=== PATIENT | male | born 1965 | race Caucasian/White ===

== ENCOUNTER 2024-07-30 00:42 | Emergency (ER) | payer OTHER, SELFPAY ==
[2024-07-30] VITALS (42 sets, daily range): BP systolic 118–205; BP diastolic 70–132; PULSE 89–101; RESP 16–35; TEMP 36.8; O2SAT 86–100; BMI 20.7
--- NOTE | 2024-07-30 00:56 | EKG_ITS ---
[place] [id number] [place] [id number] Test Date: 2024-07-30 Pat Name: Freya Shook Department: [facility] Room: Gender: Male [employer] Supervisor: MACKENZIE : 1965 Requested By: Order Number: [id number] Reading MD: Maykel Haas Measurements Intervals [place] Rate: 98 P: 67 IN: 132 QRS: 42 QRSD: 98 T: 109 QT: 408 QTc: 520 Interpretive Statements Normal sinus rhythm Incomplete right bundle branch block Minimal voltage criteria for LVH, may be normal variant ( Sokolow-Alberts ) Cannot rule out Inferior infarct , age undetermined Prolonged QT Electronically Signed On 08-08-2024 18:49:09 PDT by Maykel Haas
--- NOTE | 2024-07-30 01:15 | DI.RAD.S_ITS ---
PROCEDURE: XR CHEST 1V INDICATIONS: Shortness of breath TECHNIQUE: One view of the chest was acquired. COMPARISON: None. FINDINGS: Surgical changes and devices: None. Lungs and pleura: Patchy mixed interstitial and alveolar opacities in the right lung and to lesser extent left lung. Blunting of the right costophrenic sulcus. No pneumothorax. Mediastinum: Mediastinal contours appear normal. Heart size is normal. Bones and chest wall: No suspicious bony lesions. Overlying soft tissues appear unremarkable. IMPRESSION: Mixed interstitial and alveolar opacities suggesting atypical pneumonia, less likely asymmetric pulmonary edema. Correlate lab values. Dictated by: Cintia Cortes M.D. on 07/30/2024 at 1:39 Approved by: Cintia Cortes M.D. on 07/30/2024 at 1:41
[2024-07-30 01:32] LABS: INR 1.1 (0.9-1.3); Prothrombin Time 12.6 SECONDS (9.4-12.5)
[2024-07-30 01:35] LABS: Lactate (Lactic Acid) 1.4 mmol/L (0.7-2.1)
[2024-07-30 01:36] LABS: Alanine Aminotransferase 181 IU/L (<50); Albumin Globulin Ratio 1.3 (1.0-2.8); Alkaline Phosphatase 118 U/L (38-126); Aspartate Aminotransferase 307 IU/L (17-59); BUN Creatinine Ratio 10.6 (6-22); Blood Urea Nitrogen 57 mg/dL (9-20); Carbon Dioxide 22 mmol/L (22-32); Chloride 99 mmol/L (98-107); Estimated Glomerular Filt Rate 12 mL/min (>60); Globulin 3.1 g/dL (1.7-4.1); Glucose 126 mg/dL (70-100); Sodium 135 mmol/L (137-145); Total Protein 7.1 g/dL (6.3-8.2)
[2024-07-30 01:39] LABS: Add Manual Diff / Slide Review NO; Basophils Absolute Auto 100 /uL (0-100); Basophils Percent Auto 0.9 % (0-2); Eosinophils Absolute Auto 200 /uL (0-450); Eosinophils Percent Auto 1.8 % (2-4); Hematocrit 21.5 % (41-53); Hemoglobin 7.5 g/dL (13.5-17.5); Lymphocytes Absolute Auto 1200 /uL (1100-4500); Lymphocytes Percent Auto 12.4 % (25-40); Mean Corpuscular HGB Conc 34.9 % (30-36); Mean Corpuscular Volume 91.5 fL (80-100); Monocytes Absolute Auto 800 /uL (0-900); Monocytes Percent Auto 8.9 % (3-14); Neutrophils Absolute Auto 7200 /uL (1500-7000); Platelet Count 310 X10^3/uL (150-400); Red Blood Cell Count 2.34 X10^6/uL (4.5-5.9); Red Cell Distribution Width 17.1 % (11.6-14.8); White Blood Cell Count 9.5 X10^3/uL (4.5-11.0)
[2024-07-30 02:01] LABS: NT-proBNP (BNP-Adult 18+) 47400 pg/mL (<125)
[2024-07-30 02:02] LABS: HEMOLYSIS 113 (0-50)
[2024-07-30 02:04] LABS: Potassium 4.1 mmol/L (3.4-5.1); Troponin I 0.182 ng/mL (0.01-0.034)
--- NOTE | 2024-07-30 02:08 | DI.CT.S_ITS ---
PROCEDURE: CT KIDNEY URETER BLADDER (KUB) INDICATIONS: TEENA TECHNIQUE: After the administration of oral contrast, 5 mm thick sections acquired from the diaphragms to the symphysis. 5 mm coronal and sagittal reformats were performed. For radiation dose reduction, the following was used: automated exposure control, adjustment of mA and/or kV according to patient size. COMPARISON: None. FINDINGS: Image quality: Diagnostic. Lower Chest: Moderate right pleural effusion. ABDOMEN: Liver: No contour-deforming mass. Gallbladder: Gallbladder wall thickening or pericholecystic fluid. No calcified stones present. Biliary ducts: No biliary dilation. Pancreas: No ductal dilation. Spleen: Splenectomy Adrenal Glands: No adrenal nodules. Kidneys and Ureters: No hydronephrosis. Nonobstructing renal bilateral calculi. Left renal atrophy. 6 mm distal left ureteral calculus Stomach and Bowel: Normal colonic caliber, without significant wall thickening. Multiple diverticula arise from the sigmoid colon without evidence of diverticulitis. Peritoneum: No abnormal intraperitoneal fluid. No free air. Ventral Wall: No significant hernia. Abdominal Nodes: No retroperitoneal or mesenteric adenopathy by size criteria. Vessels: Aorta and inferior vena cava are normal in size. PELVIS: Pelvic Organs: Unremarkable. Bladder: Unremarkable. Pelvic Nodes: No enlarged lymph nodes. Miscellaneous: Small bilateral inguinal hernias contain fat without bowel involvement.. Small amount of free fluid in the pelvis Bones: No aggressive osseous abnormality. IMPRESSION: Gallbladder wall thickening or pericholecystic fluid. Correlate with ultrasound to assess for acute cholecystitis. Bilateral nonobstructive renal calculi. Atrophic left kidney associated with distal left ureteral calculus, 6 mm Free fluid in the pelvis. No abscess. Note: This final report is concordant with the preliminary after-hours interpretation provided by [employer] Approved by: Juan Manuel Miner M.D. on 07/30/2024 at 8:24
[2024-07-30] MEDS: CALCIUM GLUCONATE 4.65 MEQ in SODIUM CHLORIDE 0.9% 50 ML 180 MEQ IV (02:45)
--- NOTE | 2024-07-30 03:03 | PC.NURSE ---
Pt states that he is feeling much better since arriving to ER. Denies pain. The numbness and tingling he had in his hands and feet have improved. He was told previously that he has neuropathy.
--- NOTE | 2024-07-30 03:25 | ED.GENADULT ---
HPI - General Adult <Marie Arellano DO - Last Filed: 07/31/24 06:22> General Chief complaint: Weakness Stated complaint: Hypertension, can barely walk Time Seen by Provider: 07/30/24 02:08 Source: patient, RN notes reviewed and old records reviewed Mode of arrival: Ambulatory Limitations: no limitations History of Present Illness HPI narrative: 59-year-old male states he was just started on blood pressure medication a week ago presents with complaint of increasing shortness of breath, dyspnea with exertion and fatigue starting in March but worsening over the past couple of weeks. Patient states no chest pain or pressure, shortness of breath with the exertion none at rest. Denies fevers or chills. No nausea or vomiting. No abdominal back or flank pain. States he has been urinating regularly he has not noticed any decrease of output. Denies any new swelling in his extremities. Patient states before he could walk long distances and now it he asked to take a break at 50 or 100 ft. Patient states he started amlodipine in the last week for hypertension. He had large kidney stone lasered at [facility] in March 2024. Patient states no other daily medications. He had prior splenectomy and surgical repair after having a fall from a [place] he states he had and was brought back to life 16 times. Patient states he does not use caffeine, does use cigarettes, denies any alcohol, uses marijuana denies any other recreational drugs. States he is homeless. Has not had regular medical care per patient. Related Data Allergies Allergy/AdvReac Type Severity Reaction Status Date / Time No Known Drug Allergies Allergy Verified 07/30/24 01:14 Review of Systems <Marie Arellano DO - Last Filed: 07/31/24 06:22> Review of Systems ROS Unobtainable: All systems reviewed & are unremarkable except as noted in HPI and below Patient History <Marie Arellano DO - Last Filed: 07/31/24 06:22> Social History Smoking Status: Current every day smoker Smoking Status: Current every day smoker tobacco type: cigarettes Exam <Marie Arellano DO - Last Filed: 07/31/24 06:22> Narrative Exam Narrative: GENERAL: Alert and oriented x three, male in mild distress HEENT: Head normocephalic, atraumatic, EOMI, pupils reactive, face symmetric, moist mucous membranes NECK: Supple, full range of motion CARDIOVASCULAR: Regular rate and rhythm without murmurs, rubs or gallops. No JVD. No edema bilateral lower extremities. No tachypnea or accessory muscle use. RESPIRATORY: Breath sounds equal bilaterally, no wheezes rales or rhonchi. ABDOMEN: Soft, nontender. Normoactive bowel sounds all 4 quadrants. No guarding or rebound, rigidity, no mass, healed midline incision. : No CVA tenderness EXTREMITIES: Normal range of motion, no clubbing or edema. Neurovascularly intact NEUROLOGICAL: Cranial nerves II through XII grossly intact. Moving all extremities SKIN: Warm, dry, no petechiae, no rashes or lesions. Initial Vital Signs Initial Vital Signs: Vital Signs Temperature 98.2 F 07/30/24 00:50 Pulse Rate 98 H 07/30/24 00:50 Respiratory Rate 20 07/30/24 00:50 Blood Pressure 205/127 H 07/30/24 00:50 Pulse Oximetry 99 07/30/24 00:50 Oxygen Delivery Method Room Air 07/30/24 00:50 <Andres Maldonado, DO - Last Filed: 07/30/24 18:21> Initial Vital Signs Initial Vital Signs: Vital Signs Temperature 98.2 F 07/30/24 00:50 Pulse Rate 98 H 07/30/24 00:50 Respiratory Rate 20 07/30/24 00:50 Blood Pressure 205/127 H 07/30/24 00:50 Pulse Oximetry 99 07/30/24 00:50 Oxygen Delivery Method Room Air 07/30/24 00:50 Course <Marie Arellano, DO - Last Filed: 07/31/24 06:22> Orders Ordered: Discontinued Medications Calcium Gluconate 4.65 meq/ (Sodium Chloride) 60 mls @ 180 mls/hr IV NOW ONE Stop: 07/30/24 02:27 Last Infusion: 07/30/24 03:26 Dose: Infused Documented By: Infusion: 07/30/24 02:55 Dose: 180 mls/hr Documented By: Infusion: 07/30/24 02:45 Dose: 0 mls/hr Documented By: Admin: 07/30/24 02:45 Dose: 180 mls/hr Documented By: AB Nicardipine HCl 25 mg/ Sodium (Chloride) 250 mls @ 50 mls/hr IV TITRATE SALOME; Protocol Last Titration: 07/30/24 10:10 Dose: 0 mg/hr, 0 mls/hr Documented By: Titration: 07/30/24 04:47 Dose: 2.5 mg/hr, 25 mls/hr Documented By: Admin: 07/30/24 04:02 Dose: 5 mg/hr, 50 mls/hr Documented By: JEREMÍAS Sodium Chloride (Normal Saline 0.9%) 1,000 mls @ 125 mls/hr IV CONT SALOME Last Admin: 07/30/24 07:50 Dose: 125 mls/hr Documented By: OLEGARIO Labetalol HCl (Labetalol 20 Mg/4 Ml Syringe) 10 mg IV NOW ONE Stop: 07/30/24 03:53 Vital Signs Vital signs: Vital Signs - 8 hr 07/30/24 03:30 07/30/24 03:30 07/30/24 03:35 Pulse Rate 95 H 97 H Respiratory Rate 19 19 Blood Pressure 193/121 H Pulse Oximetry 94 97 Oxygen Delivery Method Room Air 07/30/24 03:40 07/30/24 03:45 07/30/24 03:50 Pulse Rate 100 H 98 H 100 H Respiratory Rate 30 H 24 18 Blood Pressure Pulse Oximetry 94 96 96 Oxygen Delivery Method 07/30/24 03:55 07/30/24 04:00 07/30/24 04:00 Pulse Rate 101 H 98 H Respiratory Rate 23 18 Blood Pressure 201/127 H Pulse Oximetry 97 95 Oxygen Delivery Method 07/30/24 04:05 07/30/24 04:10 07/30/24 04:10 Pulse Rate 97 H 99 H Respiratory Rate 25 H 20 Blood Pressure 186/123 H Pulse Oximetry 95 95 Oxygen Delivery Method 07/30/24 04:15 07/30/24 04:15 07/30/24 04:20 Pulse Rate 98 H Respiratory Rate 20 Blood Pressure 185/115 H 173/102 H Pulse Oximetry 93 Oxygen Delivery Method 07/30/24 04:20 07/30/24 04:25 07/30/24 04:25 Pulse Rate 99 H 99 H Respiratory Rate 23 21 Blood Pressure 174/100 H Pulse Oximetry 94 91 Oxygen Delivery Method Room Air 07/30/24 04:30 07/30/24 04:30 07/30/24 04:35 Pulse Rate 98 H 97 H Respiratory Rate 25 H 20 Blood Pressure 171/97 H Pulse Oximetry 92 Oxygen Delivery Method 07/30/24 04:40 07/30/24 04:45 07/30/24 04:45 Pulse Rate 97 H 97 H Respiratory Rate 19 25 H Blood Pressure 156/90 H Pulse Oximetry 92 93 Oxygen Delivery Method 07/30/24 04:50 07/30/24 05:00 07/30/24 05:00 Pulse Rate 99 H 97 H Respiratory Rate 35 H 22 Blood Pressure 163/94 H Pulse Oximetry 93 92 Oxygen Delivery Method Room Air Room Air 07/30/24 05:15 07/30/24 05:15 07/30/24 05:30 Pulse Rate 95 H Respiratory Rate 29 H Blood Pressure 170/97 H 154/92 H Pulse Oximetry Oxygen Delivery Method 07/30/24 05:30 07/30/24 05:45 07/30/24 05:45 Pulse Rate 100 H 93 H Respiratory Rate 18 30 H Blood Pressure 165/101 H Pulse Oximetry 95 96 Oxygen Delivery Method 07/30/24 06:00 07/30/24 06:00 07/30/24 06:15 Pulse Rate 92 H 91 H Respiratory Rate 29 H 29 H Blood Pressure 166/98 H Pulse Oximetry 96 97 Oxygen Delivery Method 07/30/24 06:15 07/30/24 06:30 07/30/24 06:30 Pulse Rate 92 H Respiratory Rate 26 H Blood Pressure 170/98 H 170/92 H Pulse Oximetry 96 Oxygen Delivery Method Room Air 07/30/24 06:45 07/30/24 06:45 07/30/24 07:00 Pulse Rate 98 H 90 Respiratory Rate 25 H 19 Blood Pressure 159/88 H Pulse Oximetry 95 Oxygen Delivery Method 07/30/24 07:00 07/30/24 07:15 07/30/24 07:15 Pulse Rate 90 Respiratory Rate 28 H Blood Pressure 144/78 H 147/79 H Pulse Oximetry 93 Oxygen Delivery Method 07/30/24 07:30 07/30/24 07:30 07/30/24 07:45 Pulse Rate 91 H Respiratory Rate 16 Blood Pressure 151/79 H 142/77 H Pulse Oximetry 93 Oxygen Delivery Method 07/30/24 07:45 07/30/24 08:00 07/30/24 08:00 Pulse Rate 91 H Respiratory Rate 21 16 Blood Pressure 139/74 Pulse Oximetry 100 Oxygen Delivery Method 07/30/24 08:15 07/30/24 08:15 07/30/24 08:30 Pulse Rate 94 H Respiratory Rate 18 Blood Pressure 162/88 H 157/90 H Pulse Oximetry 94 Oxygen Delivery Method 07/30/24 08:30 07/30/24 08:45 07/30/24 08:45 Pulse Rate 93 H 93 H Respiratory Rate 27 H 16 Blood Pressure 156/89 H Pulse Oximetry 96 93 Oxygen Delivery Method 07/30/24 09:00 07/30/24 09:00 07/30/24 09:15 Pulse Rate 91 H Respiratory Rate Blood Pressure 132/70 138/76 Pulse Oximetry 96 Oxygen Delivery Method 07/30/24 09:15 07/30/24 09:30 07/30/24 09:30 Pulse Rate 90 89 Respiratory Rate 26 H Blood Pressure 134/74 Pulse Oximetry 94 Oxygen Delivery Method 07/30/24 09:45 07/30/24 09:45 07/30/24 10:00 Pulse Rate 90 Respiratory Rate 24 22 Blood Pressure 136/71 118/71 Pulse Oximetry 95 Oxygen Delivery Method Room Air 07/30/24 10:00 Pulse Rate 91 H Respiratory Rate 29 H Blood Pressure Pulse Oximetry 86 L Oxygen Delivery Method <Andres Maldonado, DO - Last Filed: 07/30/24 18:21> Orders Ordered: Discontinued Medications Calcium Gluconate 4.65 meq/ (Sodium Chloride) 60 mls @ 180 mls/hr IV NOW ONE Stop: 07/30/24 02:27 Last Infusion: 07/30/24 03:26 Dose: Infused Documented By: Infusion: 07/30/24 02:55 Dose: 180 mls/hr Documented By: Infusion: 07/30/24 02:45 Dose: 0 mls/hr Documented By: Admin: 07/30/24 02:45 Dose: 180 mls/hr Documented By: Nicardipine HCl 25 mg/ Sodium (Chloride) 250 mls @ 50 mls/hr IV TITRATE SALOME; Protocol Last Titration: 07/30/24 10:10 Dose: 0 mg/hr, 0 mls/hr Documented By: Titration: 07/30/24 04:47 Dose: 2.5 mg/hr, 25 mls/hr Documented By: Admin: 07/30/24 04:02 Dose: 5 mg/hr, 50 mls/hr Documented By: JEREMÍAS Sodium Chloride (Normal Saline 0.9%) 1,000 mls @ 125 mls/hr IV CONT SALOME Last Admin: 07/30/24 07:50 Dose: 125 mls/hr Documented By: OLEGARIO Labetalol HCl (Labetalol 20 Mg/4 Ml Syringe) 10 mg IV NOW ONE Stop: 07/30/24 03:53 Vital Signs Vital signs: Vital Signs - 8 hr 07/30/24 03:30 07/30/24 03:30 07/30/24 03:35 Pulse Rate 95 H 97 H Respiratory Rate 19 19 Blood Pressure 193/121 H Pulse Oximetry 94 97 Oxygen Delivery Method Room Air 07/30/24 03:40 07/30/24 03:45 07/30/24 03:50 Pulse Rate 100 H 98 H 100 H Respiratory Rate 30 H 24 18 Blood Pressure Pulse Oximetry 94 96 96 Oxygen Delivery Method 07/30/24 03:55 07/30/24 04:00 07/30/24 04:00 Pulse Rate 101 H 98 H Respiratory Rate 23 18 Blood Pressure 201/127 H Pulse Oximetry 97 95 Oxygen Delivery Method 07/30/24 04:05 07/30/24 04:10 07/30/24 04:10 Pulse Rate 97 H 99 H Respiratory Rate 25 H 20 Blood Pressure 186/123 H Pulse Oximetry 95 95 Oxygen Delivery Method 07/30/24 04:15 07/30/24 04:15 07/30/24 04:20 Pulse Rate 98 H Respiratory Rate 20 Blood Pressure 185/115 H 173/102 H Pulse Oximetry 93 Oxygen Delivery Method 07/30/24 04:20 07/30/24 04:25 07/30/24 04:25 Pulse Rate 99 H 99 H Respiratory Rate 23 21 Blood Pressure 174/100 H Pulse Oximetry 94 91 Oxygen Delivery Method Room Air 07/30/24 04:30 07/30/24 04:30 07/30/24 04:35 Pulse Rate 98 H 97 H Respiratory Rate 25 H 20 Blood Pressure 171/97 H Pulse Oximetry 92 Oxygen Delivery Method 07/30/24 04:40 07/30/24 04:45 07/30/24 04:45 Pulse Rate 97 H 97 H Respiratory Rate 19 25 H Blood Pressure 156/90 H Pulse Oximetry 92 93 Oxygen Delivery Method 07/30/24 04:50 07/30/24 05:00 07/30/24 05:00 Pulse Rate 99 H 97 H Respiratory Rate 35 H 22 Blood Pressure 163/94 H Pulse Oximetry 93 92 Oxygen Delivery Method Room Air Room Air 07/30/24 05:15 07/30/24 05:15 07/30/24 05:30 Pulse Rate 95 H Respiratory Rate 29 H Blood Pressure 170/97 H 154/92 H Pulse Oximetry Oxygen Delivery Method 07/30/24 05:30 07/30/24 05:45 07/30/24 05:45 Pulse Rate 100 H 93 H Respiratory Rate 18 30 H Blood Pressure 165/101 H Pulse Oximetry 95 96 Oxygen Delivery Method 07/30/24 06:00 07/30/24 06:00 07/30/24 06:15 Pulse Rate 92 H 91 H Respiratory Rate 29 H 29 H Blood Pressure 166/98 H Pulse Oximetry 96 97 Oxygen Delivery Method 07/30/24 06:15 07/30/24 06:30 07/30/24 06:30 Pulse Rate 92 H Respiratory Rate 26 H Blood Pressure 170/98 H 170/92 H Pulse Oximetry 96 Oxygen Delivery Method Room Air 07/30/24 06:45 07/30/24 06:45 07/30/24 07:00 Pulse Rate 98 H 90 Respiratory Rate 25 H 19 Blood Pressure 159/88 H Pulse Oximetry 95 Oxygen Delivery Method 07/30/24 07:00 07/30/24 07:15 07/30/24 07:15 Pulse Rate 90 Respiratory Rate 28 H Blood Pressure 144/78 H 147/79 H Pulse Oximetry 93 Oxygen Delivery Method 07/30/24 07:30 07/30/24 07:30 07/30/24 07:45 Pulse Rate 91 H Respiratory Rate 16 Blood Pressure 151/79 H 142/77 H Pulse Oximetry 93 Oxygen Delivery Method 07/30/24 07:45 07/30/24 08:00 07/30/24 08:00 Pulse Rate 91 H Respiratory Rate 21 16 Blood Pressure 139/74 Pulse Oximetry 100 Oxygen Delivery Method 07/30/24 08:15 07/30/24 08:15 07/30/24 08:30 Pulse Rate 94 H Respiratory Rate 18 Blood Pressure 162/88 H 157/90 H Pulse Oximetry 94 Oxygen Delivery Method 07/30/24 08:30 07/30/24 08:45 07/30/24 08:45 Pulse Rate 93 H 93 H Respiratory Rate 27 H 16 Blood Pressure 156/89 H Pulse Oximetry 96 93 Oxygen Delivery Method 07/30/24 09:00 07/30/24 09:00 07/30/24 09:15 Pulse Rate 91 H Respiratory Rate Blood Pressure 132/70 138/76 Pulse Oximetry 96 Oxygen Delivery Method 07/30/24 09:15 07/30/24 09:30 07/30/24 09:30 Pulse Rate 90 89 Respiratory Rate 26 H Blood Pressure 134/74 Pulse Oximetry 94 Oxygen Delivery Method 07/30/24 09:45 07/30/24 09:45 07/30/24 10:00 Pulse Rate 90 Respiratory Rate 24 22 Blood Pressure 136/71 118/71 Pulse Oximetry 95 Oxygen Delivery Method Room Air 07/30/24 10:00 Pulse Rate 91 H Respiratory Rate 29 H Blood Pressure Pulse Oximetry 86 L Oxygen Delivery Method Medical Decision Making <Marie Arellano, DO - Last Filed: 07/31/24 06:22> Lab Data 07/30/24 01:15 07/30/24 01:15 Labs: Lab Results 07/30/24 07/30/24 07/30/24 Range/Units 01:15 03:32 04:25 WBC 9.5 (4.5-11.0) X10^3/uL RBC 2.34 L (4.5-5.9) X10^6/uL Hgb 7.5 L (13.5-17.5) g/dL Hct 21.5 L (41-53) % MCV 91.5 (80-100) fL MCH 32.0 (26-34) PG MCHC 34.9 (30-36) % RDW 17.1 H (11.6-14.8) % Plt Count 310 (150-400) X10^3/uL Neut % (Auto) 76.0 H (50-75) % Lymph % (Auto) 12.4 L (25-40) % [place] % (Auto) 8.9 (3-14) % Eos % (Auto) 1.8 L (2-4) % Baso % (Auto) 0.9 (0-2) % Neut # (Auto) 7200 H (9761-1284) /uL Lymph # (Auto) 1200 (2987-8741) /uL [place] # (Auto) 800 (0-900) /uL Eos # (Auto) 200 (0-450) /uL Baso # (Auto) 100 (0-100) /uL PT 12.6 H (9.4-12.5) SECONDS INR 1.1 (0.9-1.3) Sodium 135 L (137-145) mmol/L Potassium 4.1 (3.4-5.1) mmol/L Chloride 99 (98-107) mmol/L Carbon Dioxide 22 (22-32) mmol/L BUN 57 H (9-20) mg/dL Creatinine 5.36 H (0.66-1.25) mg/dL Estimated GFR 12 L (>60) mL/min BUN/Creatinine Ratio 10.6 (6-22) Glucose 126 H (70-100) mg/dL Lactate 1.4 (0.7-2.1) mmol/L Calcium 6.0 L* (8.4-10.2) mg/dL Total Bilirubin 1.0 (0.2-1.3) mg/dL AST 307 H (17-59) IU/L ALT 181 H (<50) IU/L Alkaline Phosphatase 118 (38-126) U/L Troponin I 0.182 H* 0.182 H* (0.01-0.034) ng/mL NT-Pro-B Natriuret Pep 52297 H (<125) pg/mL Total Protein 7.1 (6.3-8.2) g/dL Albumin 4.0 (3.5-5.0) g/dL Globulin 3.1 (1.7-4.1) g/dL Albumin/Globulin Ratio 1.3 (1.0-2.8) Urine Color Yellow Urine Appearance Clear Urine pH 6.5 (4.5-8.0) Ur Specific Bowden 1.015 (1.000-1.035) Urine Protein 2+ H (Negative) Urine Glucose (UA) Negative (Negative) g/dL Urine Ketones Negative (NEGATIVE) Urine Occult Blood 1+ H (Negative) Urine Nitrate Negative (Negative) Urine Bilirubin Negative (NEGATIVE) Urine Urobilinogen 0.2 (0.2) E.U./dL Ur Leukocyte Esterase Negative (NEGATIVE) Urine RBC 1-5/hpf (0-5/HPF) Urine WBC None seen (0-5/HPF) Ur Squamous Epith Cells None seen (0-5/HPF) Urine Bacteria None seen (None) Ur Culture Indicated? Cult not indicated Vol Urine Centrifuged 10ml (spun) Ur Random Sodium 48 (30-90) mmol/L Urine Creatinine 68.01 mg/dL U Opiates 300ng/mL cut Negative (Negative) Ur Oxycodone Screen Negative (Negative) Urine Methadone Screen Negative (Negative) Ur Barbiturates Screen Negative (Negative) U Tricyclic Antidepress Negative (Negative) Ur Phencyclidine Scrn Negative (Negative) Ur Amphetamines Screen Positive H (Negative) U Methamphetamines Scrn Positive H (Negative) Ur MDMA Scrn (Ecstasy) Negative (Negative) U Benzodiazepines Scrn Negative (Negative) Urine Cocaine Screen Negative (Negative) U Marijuana (THC) Screen Negative (Negative) Urine Specific Bowden Ur Creatinine 07/30/24 Range/Units 04:25 WBC (4.5-11.0) X10^3/uL RBC (4.5-5.9) X10^6/uL Hgb (13.5-17.5) g/dL Hct (41-53) % MCV (80-100) fL MCH (26-34) PG MCHC (30-36) % RDW (11.6-14.8) % Plt Count (150-400) X10^3/uL Neut % (Auto) (50-75) % Lymph % (Auto) (25-40) % [place] % (Auto) (3-14) % Eos % (Auto) (2-4) % Baso % (Auto) (0-2) % Neut # (Auto) (8202-1241) /uL Lymph # (Auto) (2078-0222) /uL [place] # (Auto) (0-900) /uL Eos # (Auto) (0-450) /uL Baso # (Auto) (0-100) /uL PT (9.4-12.5) SECONDS INR (0.9-1.3) Sodium (137-145) mmol/L Potassium (3.4-5.1) mmol/L Chloride (98-107) mmol/L Carbon Dioxide (22-32) mmol/L BUN (9-20) mg/dL Creatinine (0.66-1.25) mg/dL Estimated GFR (>60) mL/min BUN/Creatinine Ratio (6-22) Glucose (70-100) mg/dL Lactate (0.7-2.1) mmol/L Calcium (8.4-10.2) mg/dL Total Bilirubin (0.2-1.3) mg/dL AST (17-59) IU/L ALT (<50) IU/L Alkaline Phosphatase (38-126) U/L Troponin I (0.01-0.034) ng/mL NT-Pro-B Natriuret Pep (<125) pg/mL Total Protein (6.3-8.2) g/dL Albumin (3.5-5.0) g/dL Globulin (1.7-4.1) g/dL Albumin/Globulin Ratio (1.0-2.8) Urine Color Urine Appearance Urine pH TNP (4.5-8.0) Ur Specific Bowden (1.000-1.035) Urine Protein (Negative) Urine Glucose (UA) (Negative) g/dL Urine Ketones (NEGATIVE) Urine Occult Blood (Negative) Urine Nitrate (Negative) Urine Bilirubin (NEGATIVE) Urine Urobilinogen (0.2) E.U./dL Ur Leukocyte Esterase (NEGATIVE) Urine RBC (0-5/HPF) Urine WBC (0-5/HPF) Ur Squamous Epith Cells (0-5/HPF) Urine Bacteria (None) Ur Culture Indicated? Vol Urine Centrifuged Ur Random Sodium (30-90) mmol/L Urine Creatinine mg/dL U Opiates 300ng/mL cut (Negative) Ur Oxycodone Screen (Negative) Urine Methadone Screen (Negative) Ur Barbiturates Screen (Negative) U Tricyclic Antidepress (Negative) Ur Phencyclidine Scrn (Negative) Ur Amphetamines Screen (Negative) U Methamphetamines Scrn (Negative) Ur MDMA Scrn (Ecstasy) (Negative) U Benzodiazepines Scrn (Negative) Urine Cocaine Screen (Negative) U Marijuana (THC) Screen (Negative) Urine Specific Bowden TNP Ur Creatinine TNP ECG Data Attestation: I personally reviewed and interpreted this ECG as follows: Interpretation: Sinus rhythm rate of 98 CT 132 QRS of 98 QTC of 520, patient has ST inverted and depressed and V6, no elevation appreciated Q-wave in 2 3 and AVF. No prior for comparison. MDM Narrative Medical decision making narrative: 59-year-old male comes in with the complaint of hypertension, fatigue and dyspnea with exertion. Patient is quite hypertensive upon arrival. Patient notes he was started blood pressure medication about a week ago did have what sounds like laser lithotripsy for a large renal calculus in March at [facility]. We will attempt to get records. Labs show hemoglobin of 7.5 white count of 9.5 platelets are 310. INR is 1.1, creatinine 5.36, patient is unaware of any known renal dysfunction. BUN 57 sodium is 135 glucose 126, calcium 6 with a lactate of 1.4. AST ALT are 307 and 181. [place]roponins [place] 0[place] [address]. Repeat troponin is unchanged at 0.182 Urinalysis positive for protein, + blood 1-5 RBCs. Urine drug screen is positive for amphetamines and methamphetamines. CT KUB abnormal gallbladder with wall thickening possible noncalcified stones, cholecystitis and excluded recommend ultrasound follow up. Bilateral nephrolithiasis was likely nonfunctioning nephro sclerotic left kidney. Distal left ureteral calculus. Pelvic free fluid without abscess. EKG shows sinus rhythm incomplete right bundle-branch. Patient was started on nicardipine for hypertensive crisis. Patient refuses urinary catheterization for strict I's and O's. Was able to get labs from [facility] appears his creatinine was 4.2 as of June 2024 so appears he was had significant worsening was range of 2 for his creatinine in March of 2024. Hemoglobin was in the 8 range. Spoke with urology, Dr. Rodríguez @ would recommend transfer with his multiorgan dysfunction and hypertension, does have left ureteral stone with left nephro sclerotic kidney. Spoke with patient about transfer for further evaluation for his renal dysfunction, hypertensive crisis troponins are positive he was chest pain-free no shortness of breath at rest but was quite hypertensive upon arrival. This has been improving with nicardipine drip with goal to decreased by 25%, this would be around 150/90s. Calls out to multiple facilities for transfer suspect patient we will need dialysis and needs consultation with Nephrology. Patient has been ambivalent about transfer. But does state he is not excited about the idea of dialysis but if it meant life versus he would pursue dialysis. Patient signed out to Dr. Maldonado. All lab work CT scan EKG all reviewed including nurse triage note medication and vital signs. No previous ER visits to compare medical records against. Case was discussed with Dr. Joanne Garcia hospitalist and Dr. Reynold henson administrative services director who has graciously accepted patient for transfer. However patient was rude on professional agitated and verbally abusive to staff and myself attempting to render care for himself and was not agreeable to for transfer for inpatient admission. Patient left Against Medical Advice even though and disability were discussed with patient has complications were leaving against medical advice <Andres Maldonado, DO - Last Filed: 07/30/24 18:21> Lab Data Labs: Lab Results 07/30/24 07/30/24 07/30/24 Range/Units 01:15 03:32 04:25 WBC 9.5 (4.5-11.0) X10^3/uL RBC 2.34 L (4.5-5.9) X10^6/uL Hgb 7.5 L (13.5-17.5) g/dL Hct 21.5 L (41-53) % MCV 91.5 (80-100) fL MCH 32.0 (26-34) PG MCHC 34.9 (30-36) % RDW 17.1 H (11.6-14.8) % Plt Count 310 (150-400) X10^3/uL Neut % (Auto) 76.0 H (50-75) % Lymph % (Auto) 12.4 L (25-40) % [place] % (Auto) 8.9 (3-14) % Eos % (Auto) 1.8 L (2-4) % Baso % (Auto) 0.9 (0-2) % Neut # (Auto) 7200 H (3707-1453) /uL Lymph # (Auto) 1200 (0696-8315) /uL [place] # (Auto) 800 (0-900) /uL Eos # (Auto) 200 (0-450) /uL Baso # (Auto) 100 (0-100) /uL PT 12.6 H (9.4-12.5) SECONDS INR 1.1 (0.9-1.3) Sodium 135 L (137-145) mmol/L Potassium 4.1 (3.4-5.1) mmol/L Chloride 99 (98-107) mmol/L Carbon Dioxide 22 (22-32) mmol/L BUN 57 H (9-20) mg/dL Creatinine 5.36 H (0.66-1.25) mg/dL Estimated GFR 12 L (>60) mL/min BUN/Creatinine Ratio 10.6 (6-22) Glucose 126 H (70-100) mg/dL Lactate 1.4 (0.7-2.1) mmol/L Calcium 6.0 L* (8.4-10.2) mg/dL Total Bilirubin 1.0 (0.2-1.3) mg/dL AST 307 H (17-59) IU/L ALT 181 H (<50) IU/L Alkaline Phosphatase 118 (38-126) U/L Troponin I 0.182 H* 0.182 H* (0.01-0.034) ng/mL NT-Pro-B Natriuret Pep 32264 H (<125) pg/mL Total Protein 7.1 (6.3-8.2) g/dL Albumin 4.0 (3.5-5.0) g/dL Globulin 3.1 (1.7-4.1) g/dL Albumin/Globulin Ratio 1.3 (1.0-2.8) Urine Color Yellow Urine Appearance Clear Urine pH 6.5 (4.5-8.0) Ur Specific Bowden 1.015 (1.000-1.035) Urine Protein 2+ H (Negative) Urine Glucose (UA) Negative (Negative) g/dL Urine Ketones Negative (NEGATIVE) Urine Occult Blood 1+ H (Negative) Urine Nitrate Negative (Negative) Urine Bilirubin Negative (NEGATIVE) Urine Urobilinogen 0.2 (0.2) E.U./dL Ur Leukocyte Esterase Negative (NEGATIVE) Urine RBC 1-5/hpf (0-5/HPF) Urine WBC None seen (0-5/HPF) Ur Squamous Epith Cells None seen (0-5/HPF) Urine Bacteria None seen (None) Ur Culture Indicated? Cult not indicated Vol Urine Centrifuged 10ml (spun) Ur Random Sodium 48 (30-90) mmol/L Urine Creatinine 68.01 mg/dL U Opiates 300ng/mL cut Negative (Negative) Ur Oxycodone Screen Negative (Negative) Urine Methadone Screen Negative (Negative) Ur Barbiturates Screen Negative (Negative) U Tricyclic Antidepress Negative (Negative) Ur Phencyclidine Scrn Negative (Negative) Ur Amphetamines Screen Positive H (Negative) U Methamphetamines Scrn Positive H (Negative) Ur MDMA Scrn (Ecstasy) Negative (Negative) U Benzodiazepines Scrn Negative (Negative) Urine Cocaine Screen Negative (Negative) U Marijuana (THC) Screen Negative (Negative) Urine Specific [place] Ur Creatinine 07/30/24 Range/Units 04:25 WBC (4.5-11.0) X10^3/uL RBC (4.5-5.9) X10^6/uL Hgb (13.5-17.5) g/dL Hct (41-53) % MCV (80-100) fL MCH (26-34) PG MCHC (30-36) % RDW (11.6-14.8) % Plt Count (150-400) X10^3/uL Neut % (Auto) (50-75) % Lymph % (Auto) (25-40) % [place] % (Auto) (3-14) % Eos % (Auto) (2-4) % Baso % (Auto) (0-2) % Neut # (Auto) (3424-5560) /uL Lymph # (Auto) (6050-6303) /uL [place] # (Auto) (0-900) /uL Eos # (Auto) (0-450) /uL Baso # (Auto) (0-100) /uL PT (9.4-12.5) SECONDS INR (0.9-1.3) Sodium (137-145) mmol/L Potassium (3.4-5.1) mmol/L Chloride (98-107) mmol/L Carbon Dioxide (22-32) mmol/L BUN (9-20) mg/dL Creatinine (0.66-1.25) mg/dL Estimated GFR (>60) mL/min BUN/Creatinine Ratio (6-22) Glucose (70-100) mg/dL Lactate (0.7-2.1) mmol/L Calcium (8.4-10.2) mg/dL Total Bilirubin (0.2-1.3) mg/dL AST (17-59) IU/L ALT (<50) IU/L Alkaline Phosphatase (38-126) U/L Troponin I (0.01-0.034) ng/mL NT-Pro-B Natriuret Pep (<125) pg/mL Total Protein (6.3-8.2) g/dL Albumin (3.5-5.0) g/dL Globulin (1.7-4.1) g/dL Albumin/Globulin Ratio (1.0-2.8) Urine Color Urine Appearance Urine pH TNP (4.5-8.0) Ur Specific Bowden (1.000-1.035) Urine Protein (Negative) Urine Glucose (UA) (Negative) g/dL Urine Ketones (NEGATIVE) Urine Occult Blood (Negative) Urine Nitrate (Negative) Urine Bilirubin (NEGATIVE) Urine Urobilinogen (0.2) E.U./dL Ur Leukocyte Esterase (NEGATIVE) Urine RBC (0-5/HPF) Urine WBC (0-5/HPF) Ur Squamous Epith Cells (0-5/HPF) Urine Bacteria (None) Ur Culture Indicated? Vol Urine Centrifuged Ur Random Sodium (30-90) mmol/L Urine Creatinine mg/dL U Opiates 300ng/mL cut (Negative) Ur Oxycodone Screen (Negative) Urine Methadone Screen (Negative) Ur Barbiturates Screen (Negative) U Tricyclic Antidepress (Negative) Ur Phencyclidine Scrn (Negative) Ur Amphetamines Screen (Negative) U Methamphetamines Scrn (Negative) Ur MDMA Scrn (Ecstasy) (Negative) U Benzodiazepines Scrn (Negative) Urine Cocaine Screen (Negative) U Marijuana (THC) Screen (Negative) Urine Specific Bowden TNP Ur Creatinine TNP MDM Narrative Medical decision making narrative: 59-year-old male comes in with the complaint of hypertension, fatigue and dyspnea with exertion. Patient is quite hypertensive upon arrival. Patient notes he was started blood pressure medication about a week ago did have what sounds like laser lithotripsy for a large renal calculus in March at [facility]. We will attempt to get records. Labs show hemoglobin of 7.5 white count of 9.5 platelets are 310. INR is 1.1, creatinine 5.36, patient is unaware of any known renal dysfunction. BUN 57 sodium is 135 glucose 126, calcium 6 with a lactate of 1.4. AST ALT are 307 and 181. Troponins [place] 0[place]182 [place] [address]. Repeat troponin is unchanged at 0.182 Urinalysis positive for protein, + blood 1-5 RBCs. Urine drug screen is positive for amphetamines and methamphetamines. CT KUB abnormal gallbladder with wall thickening possible noncalcified stones, cholecystitis and excluded recommend ultrasound follow up. Bilateral nephrolithiasis was likely nonfunctioning nephro sclerotic left kidney. Distal left ureteral calculus. Pelvic free fluid without abscess. EKG shows sinus rhythm incomplete right bundle-branch. Patient was started on nicardipine for hypertensive crisis. Patient refuses urinary catheterization for strict I's and O's. Was able to get labs from [facility] appears his creatinine was 4.2 as of 12/14/2024 so appears she was had significant worsening was range of 2 for his creatinine in March of 2024. Hemoglobin was in the 8 range. Spoke with urology, Dr. Rodríguez @ would recommend transfer with his multiorgan dysfunction and hypertension, does have left ureteral stone with left nephro sclerotic kidney. Spoke with patient about transfer for further evaluation for his renal dysfunction, hypertensive crisis troponins are positive he was chest pain-free no shortness of breath at rest but was quite hypertensive upon arrival. This has been improving with nicardipine drip with goal to decreased by 25%, this would be around 150/90s. Calls out to multiple facilities for transfer suspect patient we will need dialysis and needs consultation with Nephrology. Patient has been ambivalent about transfer. But does state he is on excited about the idea of dialysis but if it meant life versus he would pursue dialysis. Patient signed out to Dr. Maldonado. All lab work CT scan EKG all reviewed including nurse triage note medication and vital signs. No previous ER visits to compare medical records against. Case was discussed with Dr. Joanne Garcia hospitalist and Dr. Reynold henson administrative services director who has graciously accepted patient for transfer. However patient was rude on professional agitated and verbally abusive to staff and myself attempting to render care for himself and was not agreeable to for transfer for inpatient admission. Patient left Against Medical Advice even though and disability were discussed with patient has complications were leaving against medical advice Critical Care Time <Marie Arellano, - Last Filed: 07/31/24 06:22> Critical Care Time Critical Care Time: Yes Attestation: The high probability of a clinically significant, sudden or life threatening deterioration of the cardiac system(s) required my full and direct attention, intervention and personal management. The aggregate critical care time was [--] minutes. This time is in addition to time spent performing reported procedures but includes the following: [x] Data Review and interpretation [x] Patient assessment and monitoring of vital signs [x] Documentation [x] Medication orders and management <Andres Maldonado, DO - Last Filed: 07/30/24 18:21> Critical Care Time Total Critical Care Time: 30 Discharge Plan Departure Patient Disposition: Left Against Medical Advice Clinical Impression: Hypocalcemia, Calculus of distal left ureter, Hypertensive crisis Acute renal failure Qualifiers: Acute renal failure type: unspecified Qualified Code(s): N17.9 - Acute kidney failure, unspecified Stand Alone Forms: Patient Portal/API, Against Med. Advice (Citizen Of [place])
[2024-07-30] MEDS: NICARDIPINE 25 MG in SODIUM CHLORIDE 0.9% 240 ML 50 MG IV (04:02)
[2024-07-30 04:08] LABS: Troponin I 0.182 ng/mL (0.01-0.034)
--- NOTE | 2024-07-30 04:52 | PC.NURSE ---
Pt refuses Duque Catheter placement at this time.
--- NOTE | 2024-07-30 04:53 | PC.NURSE ---
Water with ice
[2024-07-30 05:04] LABS: Appearance Urine UA CLEAR; Bilirubin Urine UA NEGATIVE (NEGATIVE); Color Urine UA YELLOW; Glucose Urine UA NEGATIVE (Negative); Ketones Urine UA NEGATIVE (NEGATIVE); Leukocyte Esterase Urine UA NEGATIVE (NEGATIVE); Nitrite Urine UA NEGATIVE (Negative); Occult Blood Urine UA 1+ (Negative); Protein Urine UA 2+ (Negative); Specific Gravity Urine UA 1.015 (1.000-1.035); Urobilinogen Urine UA 0.2 E.U./dL (0.2); pH Urine UA 6.5 (4.5-8.0)
[2024-07-30 05:11] LABS: Bacteria Urine None Seen; Culture Indicated Urine Cult Not Indicated; RBC Urine 1-5/HPF (0-5/HPF); Squamous Epithelial Cell Urine None Seen (0-5/HPF); Urine Amphetamines Positive (Negative); Urine Barbiturates Negative (Negative); Urine Benzodiazepines Negative (Negative); Urine Cocaine Negative (Negative); Urine MDMA Negative (Negative); Urine Methadone Negative (Negative); Urine Methamphetamines Positive (Negative); Urine Opiates Negative (Negative); Urine Oxycodone Negative (Negative); Urine Phencyclidine Negative (Negative); Urine THC Negative (Negative); Urine Tricyclic Antidepressant Negative (Negative); Urine Volume 10mL (spun); WBC Urine None Seen (0-5/HPF)
[2024-07-30] MEDS: SODIUM CHLORIDE 0.9% 1,000 ML 125 ML IV (07:50)
--- NOTE | 2024-07-30 07:56 | PC.NURSE ---
Pt laying on right side; left arm up. Pt requesting to lay this way for optimal comfort
[2024-07-30 08:34] LABS: Creatinine Urine Random 68.01 mg/dL; Sodium Urine Random 48 mmol/L (30-90)
--- NOTE | 2024-07-30 09:09 | PC.NURSE ---
Pt refused second IV to separate nicardapine gtt and NS. Pt upset stating he feels like no one knows whats going on with him. Pt states he can fix his kidneys with naturopathic and states he does not want to leave his classic car at [facility]. Pt assured we have security on campus at all times. Pt states he does not feel like anyone is telling him what is going on. Pt updated on plan of care and insists he is still not being updated. Pt instructed on how to check on results in portal. Pt stated hew was getting mad at RN. RN stated to call for any needs and left to help with deescalation.
--- NOTE | 2024-07-30 10:11 | PC.NURSE ---
Pt's BP 118/56. Nicardipine drip stopped at this time. Will continue to monitor.
--- NOTE | 2024-07-30 10:46 | PC.NURSE ---
Addendum entered by Ted Naqvi R.N. 07/30/24 11:25: Pt yelling at staff that he doesn't want to transfer to another facility. Dr Maldonado notified. Original Note: Pt is refusing to transfer to [facility]. Dr Maldonado notified.
--- NOTE | 2024-07-30 11:10 | PC.NURSE ---
Pt sitting up at beside. Dr Maldonado in room. Explained reason for transport to pt. Pt refused transport saying that he wants to try alternative means of healing. Pt ambulatory to exit.
== END 2024-07-30 11:15 | disposition left against medical advice (07) ==
PROVIDERS: Emergency Medicine; Emergency Provider Family Medicine
DX: E83.51 Hypocalcemia (principal); N20.1 Calculus of ureter; I16.0 Hypertensive urgency; N17.9 Acute kidney failure, unspecified; R53.83 Other fatigue; Z87.442 Personal history of urinary calculi; Z59.00 Homelessness unspecified
CPT/HCPCS: 36415; 71045; 74176; 80053; 80305; 81001; 82570; 83605; 83880; 84300; 84484; 85025; 85610; 93005; 96365; 96366; 96367; 99284; 99291; J0612